=== PATIENT | male | born 1940 | race Caucasian/White ===

== ENCOUNTER → 2018-03-21 12:05 | Outpatient (CLI) | payer MEDICARE, OTHER ==
[2013-05-03 16:45] VITALS: BMI 25.5
[~2018-03-21 12:05] MED LIST: AQUASOL E50 UNIT/ML OR; ASPIRIN 81 MG E81 MG PO; BYSTOLIC20 MG PO; CARDIZEM CD360 MG PO; GLUCOPHAGE1000 MG PO; KLOR-CON 88 MEQ PO; LANOXIN125 MCG PO; LASIX20 MG PO; LOVAZA1 G PO; MULTIPLE VITAMI1 TA1 PO; PLAVIX75 MG PO; SAW PALMETTO450 MG OR
== END | disposition home or self-care (01) ==
LOC: D.RAD 12:05
DX: R13.14 Dysphagia, pharyngoesophageal phase (principal)

== ENCOUNTER 2018-09-06 16:58 | Emergency (ER) | payer MEDICARE, OTHER ==
[~2018-09-06] VITALS: Ht 167.6 cm; Wt 65.9 kg
[2018-09-06 17:00] VITALS: Ht 167.6 cm; Wt 65.9 kg
[2018-09-06 17:22] LABS: BASOPHILS 0.8 % (0-2); EOSINOPHILS 4.1 % (0-7); HEMATOCRIT 35.2 % (42.0-54.0); HEMOGLOBIN 11.1 g/dL (13.5-17.5); IMMATURE GRANULOCYTES 0.3 % (0-5); LYMPHOCYTES 21.1 % (15-50); MCH 20.6 pg (26.0-34.0); MCHC 31.5 g/dL (31.0-37.0); MCV 65.4 fL (80.0-100.0); MEAN PLATELET VOLUME 10.1 fL (7.4-10.4); MONOCYTES 14.8 % (2-11); NEUTROPHILS 58.9 % (40-80); PLATELET COUNT 214 10x3/uL (130-400); RBC 5.38 10x6/uL (4.20-6.10); RDW 18.6 % (11.5-14.5); WBC 7.2 10x3/uL (4.8-10.8)
[2018-09-06 17:41] LABS: ALBUMIN 3.9 g/dL (3.4-5.0); ALKALINE PHOSPHATASE 94 U/L (46-116); ALT (SGPT) 24 U/L (10-68); CALC OSMOLALITY 274 mosm/kg (275-300); CALCIUM 8.9 mg/dL (8.5-10.1); CARBON DIOXIDE 22.9 mmol/L (21.0-32.0); CHLORIDE - SERUM 101 mmol/L (98-107); GLUCOSE 150 mg/dL (74-106); POTASSIUM - SERUM 3.9 mmol/L (3.5-5.1); PROTEIN - SERUM 8.3 g/dL (6.4-8.2); SODIUM 135 mmol/L (136-145); UREA NITROGEN 17 mg/dL (7-18); eGFR NON AFRICAN AMERICAN 77 mL/min (90-120)
[2018-09-06 19:13] LABS: PROTIME 27.4 SECONDS (11.6-15.0)
[2018-09-06 19:14] LABS: INR 2.53 (0.85-1.17)
[2018-09-06 19:17] LABS: APTT 56.3 SECONDS (22.8-39.4)
[2018-09-06] MEDS ORDERED: AUGMENTIN 875-11 TAB PO (19:36)
[2018-09-06 21:30] VITALS: BP 150/52
== END 2018-09-06 21:30 | disposition home or self-care (01) ==
LOC: D.ER 16:58
PROVIDERS: Family Medicine
DX: R04.0 Epistaxis (principal); J01.90 Acute sinusitis, unspecified

== ENCOUNTER → 2018-09-11 15:18 | Outpatient (CLI) | payer MEDICARE, OTHER ==
[2018-09-06 17:00] VITALS: BMI 23.4
[~2018-09-11 15:18] MED LIST changes: +AUGMENTIN 875-11 TAB PO
== END | disposition home or self-care (01) ==
LOC: D.LABREF 15:18
PROVIDERS: ATTEND Otolaryngology
DX: J32.0 Chronic maxillary sinusitis (principal)